=== PATIENT | female | born 1980 | race Asian ===

== ENCOUNTER 2018-05-18 07:36 | Emergency (ER) | payer OTHER, SELFPAY ==
[2018-05-18 07:55] VITALS: BP 101/65; PULSE 78; RESP 16; TEMP 37.1; O2SAT 99; BMI 23.5
--- NOTE | 2018-05-18 08:31 | DI.US.S_ITS ---
PROCEDURE: US PELVIC COMPLETE INDICATIONS: RIGHT ADNEXA PAIN TECHNIQUE: Real-time scanning was performed of the pelvic organs, with image documentation. Additional endovaginal scanning was necessary due to incomplete visualization of the adnexal and endometrial structures by transabdominal scanning. COMPARISON: None. FINDINGS: Transabdominal scanning: Limited scanning through the kidneys shows no hydronephrosis. No pathologic free abdominal fluid. A physiologic amount of fluid is noted in lower pelvis. Endovaginal scanning: Uterus: Uterus is normal in size at 6.5 x 4.3 x 7.0 cm. The endometrium measures 12.3 mm in combined thickness. No gross endometrial mass or fluid is seen. Ovaries: Right ovary measures 5.5 x 3.5 x 5.1 cm in size. Complex cystic structure measures 5.3 x 3.6 x 4.5 cm in size is noted in right ovary with internal septation and low level echo. No internal vascularity is seen. Left ovary measures 3.3 x 1.3 x 1.6 cm in size and is within normal limits. IMPRESSION: 1. 5.3 x 3.6 x 4.5 cm complex or hemorrhagic cyst in right ovary. Normal appearing left ovary. 2. No endometrial mass or or fluid. Small amount of free fluid in lower pelvis. Dictated by: Keyur Sanchez M.D. on 05/18/2018 at 9:26 Approved by: Keyur Sanchez M.D. on 05/18/2018 at 9:28
--- NOTE | 2018-05-18 08:41 | ED_ITS ---
HPI - Abdominal Pain General Chief Complaint: Abdominal Pain Stated Complaint: lower pelvis pain x1 day Time Seen by Provider: 05/18/18 07:40 Source: patient Mode of arrival: ambulatory Limitations: no limitations History of Present Illness HPI narrative: Patient is a 37-year-old female who stated that shortly after she woke up this morning she had a sudden onset of midline right-sided adnexal pain. She states she has had ovarian cysts in the past and this felt similar to that. She states that currently her symptoms seems to have improved. No urinary symptoms. No bowel symptoms. No vaginal bleeding. She has had a tubal ligation with her last . She is not currently on any control. No other abdominal surgeries except for the . Related Data Home Medications Medication Instructions Recorded Confirmed varenicline [Chantix Starting 1 dose PO DIRECTED 05/18/18 Month Box] Allergies Allergy/AdvReac Type Severity Reaction Status Date / Time No Known Allergies Allergy Uncoded 07/06/17 12:47 Review of Systems Constitutional Denies fever(s) Cardiovascular Denies chest pain and Denies dyspnea Respiratory Denies dyspnea Gastrointestinal Gastrointestinal: Denies nausea and Denies vomiting Genitourinary Denies dysuria and Denies vaginal discharge Comments: Right-sided pelvic pain Musculoskeletal Denies myalgias and Denies arthralgias Integumentary/Breasts Denies rash Hematologic/Lymphatic Comments: Not on blood [facility] Medical History section wound complication (Acute) Healthy adult (Acute) Social History Smoking Status: Former smoker Social History Smoking Status: Former smoker Exam Initial Vital Signs Initial Vital Signs: Vital Signs Temperature 98.7 F 05/18/18 07:55 Pulse Rate 78 05/18/18 07:55 Respiratory Rate 16 05/18/18 07:55 Blood Pressure 101/65 05/18/18 07:55 Pulse Oximetry 99 05/18/18 07:55 Const General: cooperative, healthy appearing, comfortable, well developed, well groomed and No acute distress Orientation: alert, awake and oriented x3 HENMT Head: normal to inspection and normocephalic Resp Effort & Inspection: normal respiratory effort Auscultation: clear to auscultation bilaterally Cardio Rate: regular rate Rhythm: regular rhythm GI Inspection: non-distended Palpation: soft and No firm Other: Mild tenderness to the right adnexa Skin Lesions: no lesions Rashes: no rashes Neuro General: alert, awake and oriented x3 Extrem General: normal to inspection and capillary refill normal Psych Appearance: grossly normal and well kempt Course Orders Ordered: ED Orders 05/18/18 08:31 US pelvic complete Stat 05/18/18 09:17 Urine Microscopic Stat Vital Signs - 8 hr 05/18/18 07:55 Temperature 98.7 F Pulse Rate 78 Respiratory Rate 16 Blood Pressure 101/65 Pulse Oximetry 99 MDM - Abdominal Pain Lab Data Lab Results 05/18/18 Range/Units 09:17 Urine RBC 0-1/hpf (0-5/HPF) Urine WBC 1-5/hpf (0-5/HPF) Ur Squamous Epith Cells 5-10 /hpf H Urine Bacteria Few (2-10) H (None) Urine Mucus 1+ H (Negative) Ur Culture Indicated? Cult not indicated Point of care testing: Point of Care Testing Test Results Negative Urine Dip Bedside Urine Glucose Negative Bedside Urine Bilirubin - Negative Bedside Urine Ketone ++ 40 Urine Specific [place] 1.030 Bedside Urine Occult Blood +/- Bedside Urine pH 6.0 Bedside Urine Protein +/- 15 Bedside Urine Urobilinogen - Negative Bedside Urine Nitrite - Negative Bedside Urine Leukocytes - Negative Esterase Imaging Data US pelvis: Radiologist's impression: [place] [address] Ultrasound Report Signed Patient: Ophelia Mason WMR#: [id number] : 1980Acct:[id number] Age/Sex: 37 / FDate of Service: 05/18/18 Loc: ED Accession Number: [id number] Procedure: US pelvic complete Ordering Provider: Néstor Russo D.O. PROCEDURE: US PELVIC COMPLETE INDICATIONS: RIGHT ADNEXA PAIN TECHNIQUE: Real-time scanning was performed of the pelvic organs, with image documentation. Additional endovaginal scanning was necessary due to incomplete visualization of the adnexal and endometrial structures by transabdominal scanning. COMPARISON: None. FINDINGS: Transabdominal scanning: Limited scanning through the kidneys shows no hydronephrosis. No pathologic free abdominal fluid. A physiologic amount of fluid is noted in lower pelvis. Endovaginal scanning: Uterus: Uterus is normal in size at 6.5 x 4.3 x 7.0 cm. The endometrium measures 12.3 mm in combined thickness. No gross endometrial mass or fluid is seen. Ovaries: Right ovary measures 5.5 x 3.5 x 5.1 cm in size. Complex cystic structure measures 5.3 x 3.6 x 4.5 cm in size is noted in right ovary with internal septation and low level echo. No internal vascularity is seen. Left ovary measures 3.3 x 1.3 x 1.6 cm in size and is within normal limits. IMPRESSION: 1. 5.3 x 3.6 x 4.5 cm complex or hemorrhagic cyst in right ovary. Normal appearing left ovary. 2. No endometrial mass or or fluid. Small amount of free fluid in lower pelvis. Dictated by: Keyur Sanchez M.D. on 05/18/2018 at 9:26 Approved by: Keyur Sanchez M.D. on 05/18/2018 at 9:28 MDM Narrative Medical decision making narrative: Ultrasound shows a right ovarian cyst. She states that this symptoms that she had today feels like her prior cyst. She is not currently on any control but has had a tubal ligation. Hold on further workup for now. Patient states she feels much better. She was given return precautions. She expressed understanding and agreement with plan. Discharge Plan Departure Patient Disposition: Home Clinical Impression: Ovarian cyst Qualifiers: Laterality: right Qualified Code(s): N83.201 - Unspecified ovarian cyst, right side Instructions: DI for Ovarian Cyst Activity Restrictions/Additional Instructions: Recommend you talk to your instrument and control technician regarding your recurrent cysts. Return to the emergency department for any new or worsening symptoms Prescriptions: No Action Chantix Starting Month Box 0.5 mg (11)- 1 mg (42) tablets,dose pack 1 dose PO DIRECTED RF: 0
[2018-05-18 09:40] LABS: Bacteria Urine Few (2-10); Culture Indicated Urine Cult Not Indicated; Mucus Urine 1+ (Negative); RBC Urine 0-1/HPF (0-5/HPF); Squamous Epithelial Cell Urine 5-10 /HPF; WBC Urine 1-5/HPF (0-5/HPF)
[2018-05-18 09:53] VITALS: BP 102/64; PULSE 72; RESP 16; O2SAT 100
[2018-05-18 09:58] LABS: Calcium Oxalate Crystals Urine Few
== END 2018-05-18 09:54 | disposition home or self-care (01) ==
PROVIDERS: Emergency Provider Emergency Medicine
DX: N83.201 Unspecified ovarian cyst, right side (principal)
CPT/HCPCS: 76830; 76856; 81003; 81015; 81025; 99283; 99284